=== PATIENT | male | born 1930 | race Caucasian/White ===

== ENCOUNTER 2016-06-25 13:38 | Outpatient (CLI) | payer MEDICARE, BC ==
[~2016-06-25 13:38] MED LIST: ASPI-605 PO; CLOP75TA2 PO; DIGO125T PO; FINA5TAB4 PO; TEST75GE TD
== END 2016-06-25 23:59 | disposition home or self-care (01) ==
LOC: WOU 13:38
PROVIDERS: ATTEND Podiatrist Foot & Ankle Surgery
DX: I87.311 Chronic venous hypertension (idiopathic) with ulcer of right lower extremity (principal); L97.212 Non-pressure chronic ulcer of right calf with fat layer exposed; R60.0 Localized edema; Z79.01 Long term (current) use of anticoagulants; Z87.891 Personal history of nicotine dependence; I49.9 Cardiac arrhythmia, unspecified; G62.9 Polyneuropathy, unspecified; B35.1 Tinea unguium
CPT/HCPCS: 11042; A6402

== ENCOUNTER 2016-07-02 10:37 | Outpatient (CLI) | payer MEDICARE, BC | END 2016-07-02 23:59 | disposition home or self-care (01) | LOC: WOU 10:37 | PROVIDERS: ATTEND Podiatrist Foot & Ankle Surgery | DX: I83.212 Varicose veins of right lower extremity with both ulcer of calf and inflammation (principal); L97.212 Non-pressure chronic ulcer of right calf with fat layer exposed | CPT/HCPCS: 93925-TC; 93970-TC; A6207 ==

== ENCOUNTER 2016-07-03 08:35 | Outpatient (CLI) | payer MEDICARE, BC | END 2016-07-03 23:59 | disposition home or self-care (01) | LOC: WOU 08:35 | PROVIDERS: ATTEND Podiatrist Foot & Ankle Surgery | DX: I87.311 Chronic venous hypertension (idiopathic) with ulcer of right lower extremity (principal); L97.812 Non-pressure chronic ulcer of other part of right lower leg with fat layer exposed; R60.0 Localized edema; I49.9 Cardiac arrhythmia, unspecified; Z79.01 Long term (current) use of anticoagulants; G62.9 Polyneuropathy, unspecified; Z88.1 Allergy status to other antibiotic agents; Z87.891 Personal history of nicotine dependence; Z82.49 Family history of ischemic heart disease and other diseases of the circulatory system; Z80.9 Family history of malignant neoplasm, unspecified | CPT/HCPCS: 11042; A6207; A6402 ==

== ENCOUNTER 2016-07-09 09:50 | Outpatient (CLI) | payer MEDICARE, BC | END 2016-07-09 23:59 | disposition home or self-care (01) | LOC: WOU 09:50 | PROVIDERS: ATTEND Podiatrist Foot & Ankle Surgery | DX: I87.311 Chronic venous hypertension (idiopathic) with ulcer of right lower extremity (principal); L97.212 Non-pressure chronic ulcer of right calf with fat layer exposed; R60.0 Localized edema; G62.9 Polyneuropathy, unspecified; I49.9 Cardiac arrhythmia, unspecified; Z79.01 Long term (current) use of anticoagulants; R26.9 Unspecified abnormalities of gait and mobility | CPT/HCPCS: 29582; A6207; A6402 ==

== ENCOUNTER 2016-07-16 09:50 | Outpatient (CLI) | payer MEDICARE, BC | END 2016-07-16 23:59 | disposition home or self-care (01) | LOC: WOU 09:50 | PROVIDERS: ATTEND Podiatrist Foot & Ankle Surgery | DX: I87.311 Chronic venous hypertension (idiopathic) with ulcer of right lower extremity (principal); L97.212 Non-pressure chronic ulcer of right calf with fat layer exposed; R60.0 Localized edema; B35.1 Tinea unguium; B35.3 Tinea pedis; Z87.891 Personal history of nicotine dependence; I49.9 Cardiac arrhythmia, unspecified; Z79.01 Long term (current) use of anticoagulants | CPT/HCPCS: 11042; A6402 ==

== ENCOUNTER 2016-07-23 09:56 | Outpatient (CLI) | payer MEDICARE, BC | END 2016-07-23 23:59 | disposition home or self-care (01) | LOC: WOU 09:56 | PROVIDERS: ATTEND Podiatrist Foot & Ankle Surgery | DX: I87.301 Chronic venous hypertension (idiopathic) without complications of right lower extremity (principal); Z87.891 Personal history of nicotine dependence; R26.81 Unsteadiness on feet; Z79.01 Long term (current) use of anticoagulants; I49.9 Cardiac arrhythmia, unspecified; G62.9 Polyneuropathy, unspecified | CPT/HCPCS: G0463 ==

== ENCOUNTER 2017-01-13 05:07 | Emergency (ER) | payer MEDICARE, BC ==
[~2017-01-13] VITALS: Ht 172.7 cm; Wt 77.1 kg
--- NOTE | 2017-01-13 05:07 | NUR ---
86/M BIB SELF A/O x3 C/O INCREASED SWELLING TO LEFT LEG; PT NOTED WITH BLE EDEMA. PT DENIES SOB OR CHEST PAIN. RR EVEN AND UNLABORED. PT PLACED ON CORROSION ENGINEER. VSS. AWAITING PROVIDER ORDERS.
[2017-01-13] MEDS ORDERED: CLINDAMYCIN HCL 150 MG CAPSULE PO ONE ×2 (05:46→06:00)
[2017-01-13 06:17] LABS: CARBON DIOXIDE 27 mmol/L (21-32); CHLORIDE 107 mmol/L (98-107); GLUCOSE 111 mg/dL (74-106); POTASSIUM 4.1 mmol/L (3.5-5.1); SODIUM SERUM 143 mmol/L (136-145); UREA NITROGEN, BLOOD 20 mg/dL (7-18)
[2017-01-13 06:21] LABS: INR 1.04 (0.87-1.13); PROTHROMBIN TIME 11.1 SECS (9.5-12.7)
[2017-01-13 06:29] LABS: BASOPHILS % (AUTO) 0.1 % (0.0-2.0); EOSINOPHILS % (AUTO) 0.7 % (0.0-6.0); HEMATOCRIT 41 % (39-51); HEMOGLOBIN 13.8 g/dL (13.5-17.5); LYMPHOCYTES # (AUTO) 0.5 /CMM (0.8-4.8); MEAN CORPUSCULAR HEMOGLOBIN 34 PG (26.0-33.0); MEAN CORPUSCULAR HGB CONC 34 g/dl (31.0-36.0); MEAN CORPUSCULAR VOLUME 102 fL (80-96); MONOCYTES # (AUTO) 1.3 /CMM (0.1-1.30); MONOCYTES % (AUTO) 18.6 % (2.0-12.0); NEUTROPHILS # (AUTO) 4.9 /CMM (1.8-8.9); NEUTROPHILS % (AUTO) 72.6 % (43.0-81.0); PLATELET COUNT (AUTO) 151 /CMM (150-450); RDW COEFFICIENT OF VARIATION 15.1 (11.5-15.0); RED BLOOD CELL COUNT(AUTO) 4.02 MIL/uL (4.5-6.0); WHITE BLOOD COUNT (AUTO) 6.8 K/uL (4.3-11.0)
[2017-01-13 06:51] VITALS: BP 107/66
--- NOTE | 2017-01-13 06:51 | NUR ---
Patient discharged to home in stable condition. Written and verbal after care instructions given. Patient verbalizes understanding of instruction. PT ambulatory with a steady gait VITAL SIGNS WITHIN NORMAL LIMITS.
[2017-01-13 08:08] LABS: LYMPHOCYTES % (MANUAL) 15 % (16-48); MONOCYTES % (MANUAL) 8 % (0-11.0); NEUTROPHILS % (MANUAL) 77 (42-76)
== END 2017-01-13 07:00 | disposition home or self-care (01) ==
LOC: ER 05:09
DX: L03.116 Cellulitis of left lower limb (principal); R60.0 Localized edema; I48.2 Chronic atrial fibrillation; Z79.82 Long term (current) use of aspirin; Z88.1 Allergy status to other antibiotic agents
CPT/HCPCS: 36415; 80048-TC; 85025-TC; 85730-TC; 93971-TC; A4606; Z7610

== ENCOUNTER 2017-03-04 13:15 | Outpatient (CLI) | payer MEDICARE, BC | END 2017-03-04 23:59 | disposition home or self-care (01) | LOC: WOU 13:15 | PROVIDERS: ATTEND Podiatrist Foot & Ankle Surgery | DX: S80.821A Blister (nonthermal), right lower leg, initial encounter (principal); L03.116 Cellulitis of left lower limb; X58.XXXA Exposure to other specified factors, initial encounter; Y92.89 Other specified places as the place of occurrence of the external cause; I87.323 Chronic venous hypertension (idiopathic) with inflammation of bilateral lower extremity; Z87.891 Personal history of nicotine dependence; N40.0 Benign prostatic hyperplasia without lower urinary tract symptoms; G62.9 Polyneuropathy, unspecified; L03.115 Cellulitis of right lower limb | CPT/HCPCS: 10140; 87070; 87075; 87077; 87186; A6207; A6402 ==

== ENCOUNTER 2017-03-11 12:48 | Outpatient (CLI) | payer MEDICARE, BC | END 2017-03-11 23:59 | disposition home or self-care (01) | LOC: WOU 12:48 | PROVIDERS: ATTEND Podiatrist Foot & Ankle Surgery | DX: R60.0 Localized edema (principal); S80.821A Blister (nonthermal), right lower leg, initial encounter; X58.XXXA Exposure to other specified factors, initial encounter; Y92.89 Other specified places as the place of occurrence of the external cause | CPT/HCPCS: A6402; G0463 ==

== ENCOUNTER 2017-04-16 08:26 | Outpatient (CLI) | payer MEDICARE, BC | END 2017-04-16 23:59 | disposition home or self-care (01) | LOC: WOU 08:26 | PROVIDERS: ATTEND Podiatrist Foot & Ankle Surgery | DX: I89.0 Lymphedema, not elsewhere classified (principal); L97.822 Non-pressure chronic ulcer of other part of left lower leg with fat layer exposed; L97.811 Non-pressure chronic ulcer of other part of right lower leg limited to breakdown of skin; I87.2 Venous insufficiency (chronic) (peripheral); R60.0 Localized edema; T14.8XXA Other injury of unspecified body region, initial encounter; X58.XXXA Exposure to other specified factors, initial encounter; Y92.89 Other specified places as the place of occurrence of the external cause | CPT/HCPCS: A6209; A6402; G0463 ==

== ENCOUNTER 2017-04-22 09:28 | Outpatient (CLI) | payer MEDICARE, BC | END 2017-04-22 23:59 | disposition home or self-care (01) | LOC: WOU 09:28 | PROVIDERS: ATTEND Podiatrist Foot & Ankle Surgery | DX: I87.2 Venous insufficiency (chronic) (peripheral) (principal); L97.822 Non-pressure chronic ulcer of other part of left lower leg with fat layer exposed; L97.812 Non-pressure chronic ulcer of other part of right lower leg with fat layer exposed; I89.0 Lymphedema, not elsewhere classified; M20.40 Other hammer toe(s) (acquired), unspecified foot; Z88.1 Allergy status to other antibiotic agents; L84 Corns and callosities | CPT/HCPCS: 11042; A6402 ==

== ENCOUNTER 2017-04-29 13:42 | Outpatient (CLI) | payer MEDICARE, BC ==
[~2017-04-29 13:42] MED LIST changes: +CLOP75TA15 PO; -CLOP75TA2 PO
== END 2017-04-29 23:59 | disposition home or self-care (01) ==
LOC: WOU 13:42
PROVIDERS: ATTEND Podiatrist Foot & Ankle Surgery
DX: R60.0 Localized edema (principal); I70.203 Unspecified atherosclerosis of native arteries of extremities, bilateral legs

== ENCOUNTER 2017-04-30 09:25 | Outpatient (CLI) | payer MEDICARE, BC ==
[~2017-04-30 09:25] MED LIST changes: -CLOP75TA15 PO; +CLOP75TA2 PO
[2017-04-30 11:21] LABS: EOSINOPHILS % (AUTO) 0.5 % (0.0-6.0); HEMATOCRIT 44 % (39-51); HEMOGLOBIN 14.6 g/dL (13.5-17.5); LYMPHOCYTES # (AUTO) 0.9 /CMM (0.8-4.8); LYMPHOCYTES % (AUTO) 15.5 % (20.0-44.0); MEAN CORPUSCULAR HEMOGLOBIN 33 PG (26.0-33.0); MEAN CORPUSCULAR HGB CONC 33 g/dl (31.0-36.0); MEAN CORPUSCULAR VOLUME 100 fL (80-96); MONOCYTES % (AUTO) 17.8 % (2.0-12.0); NEUTROPHILS # (AUTO) 3.8 /CMM (1.8-8.9); NEUTROPHILS % (AUTO) 66.2 % (43.0-81.0); PLATELET COUNT (AUTO) 181 /CMM (150-450); RDW COEFFICIENT OF VARIATION 14.7 (11.5-15.0); WHITE BLOOD COUNT (AUTO) 5.8 K/uL (4.3-11.0)
[2017-04-30 11:41] LABS: ALANINE AMINOTRANSFERASE 64 U/L (12-78); ALBUMIN 3.7 g/dL (3.4-5.0); ALKALINE PHOSPHATASE 64 U/L (46-116); ASPARTATE AMINOTRANSFERASE 37 U/L (15-37); BILIRUBIN,TOTAL 0.7 mg/dL (0.2-1.0); CARBON DIOXIDE 32 mmol/L (21-32); CHLORIDE 104 mmol/L (98-107); CREATININE 0.8 mg/dL (0.6-1.3); GLUCOSE 106 mg/dL (74-106); POTASSIUM 4.3 mmol/L (3.5-5.1); SODIUM SERUM 143 mmol/L (136-145); TOTAL PROTEIN, SERUM 7.3 g/dL (6.4-8.2); UREA NITROGEN, BLOOD 24 mg/dL (7-18)
[2017-04-30 14:24] LABS: BAND % (MANUAL) 2 % (0.0-5.0); EOSINOPHILS % (MANUAL) 2 % (0-4); LYMPHOCYTES % (MANUAL) 14 % (16-48); MONOCYTES % (MANUAL) 17 % (0-11.0); NEUTROPHILS % (MANUAL) 65 (42-76)
[2017-05-02 08:09] LABS: HOMOCYSTEINE, PLASMA 15.1 umol/L (0.0-15.0)
== END 2017-04-30 23:59 | disposition home or self-care (01) ==
LOC: WOU 09:25
PROVIDERS: ATTEND Podiatrist Foot & Ankle Surgery
DX: I87.311 Chronic venous hypertension (idiopathic) with ulcer of right lower extremity (principal); I89.0 Lymphedema, not elsewhere classified; L97.812 Non-pressure chronic ulcer of other part of right lower leg with fat layer exposed
CPT/HCPCS: 11042; 36415; 80053-TC; 82306; 83090; 85025-TC; 85652-TC; A6402

== ENCOUNTER 2017-05-06 09:50 | Outpatient (CLI) | payer MEDICARE, BC ==
[~2017-05-06 09:50] MED LIST changes: +CLOP75TA15 PO; -CLOP75TA2 PO
== END 2017-05-06 23:59 | disposition home or self-care (01) ==
LOC: WOU 09:50
PROVIDERS: ATTEND Podiatrist Foot & Ankle Surgery
DX: I87.311 Chronic venous hypertension (idiopathic) with ulcer of right lower extremity (principal); L97.812 Non-pressure chronic ulcer of other part of right lower leg with fat layer exposed; I89.0 Lymphedema, not elsewhere classified
CPT/HCPCS: 11042; A6402

== ENCOUNTER 2017-05-14 09:28 | Outpatient (CLI) | payer MEDICARE, BC | END 2017-05-14 23:59 | disposition home or self-care (01) | LOC: WOU 09:28 | PROVIDERS: ATTEND Podiatrist Foot & Ankle Surgery | DX: I87.2 Venous insufficiency (chronic) (peripheral) (principal); L97.512 Non-pressure chronic ulcer of other part of right foot with fat layer exposed; I89.0 Lymphedema, not elsewhere classified; I48.2 Chronic atrial fibrillation; Z79.01 Long term (current) use of anticoagulants | CPT/HCPCS: 11042; A6402 ==

== ENCOUNTER 2017-05-20 09:49 | Outpatient (CLI) | payer MEDICARE, BC | END 2017-05-20 23:59 | disposition home or self-care (01) | LOC: WOU 09:49 | PROVIDERS: ATTEND Podiatrist Foot & Ankle Surgery | DX: I89.0 Lymphedema, not elsewhere classified (principal); R60.0 Localized edema; B35.1 Tinea unguium | CPT/HCPCS: A6402; G0463 ==

== ENCOUNTER 2017-06-03 09:48 | Outpatient (CLI) | payer MEDICARE, BC | END 2017-06-03 23:59 | disposition home or self-care (01) | LOC: WOU 09:48 | PROVIDERS: ATTEND Podiatrist Foot & Ankle Surgery | DX: I87.2 Venous insufficiency (chronic) (peripheral) (principal); I87.8 Other specified disorders of veins; R60.0 Localized edema; I89.0 Lymphedema, not elsewhere classified; Z88.1 Allergy status to other antibiotic agents | CPT/HCPCS: 17250; A6402 ==

== ENCOUNTER 2017-06-10 10:00 | Outpatient (CLI) | payer MEDICARE, BC | END 2017-06-10 23:59 | disposition home or self-care (01) | LOC: WOU 10:00 | PROVIDERS: ATTEND Podiatrist Foot & Ankle Surgery | DX: I87.333 Chronic venous hypertension (idiopathic) with ulcer and inflammation of bilateral lower extremity (principal); L97.822 Non-pressure chronic ulcer of other part of left lower leg with fat layer exposed; L97.819 Non-pressure chronic ulcer of other part of right lower leg with unspecified severity; L03.116 Cellulitis of left lower limb; L03.115 Cellulitis of right lower limb; I89.0 Lymphedema, not elsewhere classified; I48.2 Chronic atrial fibrillation; Z79.01 Long term (current) use of anticoagulants | CPT/HCPCS: 87070-TC; 87186-TC; A6402; G0463 ==

== ENCOUNTER 2017-06-17 09:50 | Outpatient (CLI) | payer MEDICARE, BC | END 2017-06-17 23:59 | disposition home or self-care (01) | LOC: WOU 09:50 | PROVIDERS: ATTEND Podiatrist Foot & Ankle Surgery | DX: I87.2 Venous insufficiency (chronic) (peripheral) (principal); L97.822 Non-pressure chronic ulcer of other part of left lower leg with fat layer exposed; L97.812 Non-pressure chronic ulcer of other part of right lower leg with fat layer exposed; I89.0 Lymphedema, not elsewhere classified; L08.9 Local infection of the skin and subcutaneous tissue, unspecified; B95.7 Other staphylococcus as the cause of diseases classified elsewhere; B96.89 Other specified bacterial agents as the cause of diseases classified elsewhere | CPT/HCPCS: A6402; G0463 ==

== ENCOUNTER 2017-08-01 09:24 | Outpatient (CLI) | payer MEDICARE, BC | END 2017-08-01 23:59 | disposition home or self-care (01) | LOC: WOU 09:24 | PROVIDERS: ATTEND Podiatrist Foot & Ankle Surgery | DX: I87.2 Venous insufficiency (chronic) (peripheral) (principal); L97.822 Non-pressure chronic ulcer of other part of left lower leg with fat layer exposed; I89.0 Lymphedema, not elsewhere classified; R60.0 Localized edema; Z87.891 Personal history of nicotine dependence; I49.9 Cardiac arrhythmia, unspecified; Z79.01 Long term (current) use of anticoagulants | CPT/HCPCS: 11042; A6402 ==

== ENCOUNTER 2017-08-04 11:43 | Outpatient (CLI) | payer MEDICARE, BC | END 2017-08-04 23:59 | disposition home or self-care (01) | LOC: LAB 11:43 | PROVIDERS: ATTEND Podiatrist Foot & Ankle Surgery | DX: L97.222 Non-pressure chronic ulcer of left calf with fat layer exposed (principal) | CPT/HCPCS: 36415; 80048-TC; 82040-TC; 84134-TC ==

== ENCOUNTER 2017-08-05 09:45 | Outpatient (CLI) | payer MEDICARE, BC ==
[2017-08-04 12:45] LABS: EOSINOPHILS # (AUTO) 0.1 /CMM (0.0-0.7); EOSINOPHILS % (AUTO) 1.7 % (0.0-6.0); HEMATOCRIT 41 % (39-51); HEMOGLOBIN 13.8 g/dL (13.5-17.5); LYMPHOCYTES # (AUTO) 0.7 /CMM (0.8-4.8); MEAN CORPUSCULAR HEMOGLOBIN 34 PG (26.0-33.0); MEAN CORPUSCULAR HGB CONC 34 g/dl (31.0-36.0); MEAN CORPUSCULAR VOLUME 100 fL (80-96); MONOCYTES # (AUTO) 0.9 /CMM (0.1-1.30); MONOCYTES % (AUTO) 14.3 % (2.0-12.0); NEUTROPHILS # (AUTO) 4.7 /CMM (1.8-8.9); PLATELET COUNT (AUTO) 168 /CMM (150-450); RDW COEFFICIENT OF VARIATION 14.8 (11.5-15.0); RED BLOOD CELL COUNT(AUTO) 4.06 MIL/uL (4.5-6.0); WHITE BLOOD COUNT (AUTO) 6.4 K/uL (4.3-11.0)
[2017-08-04 13:22] LABS: ALBUMIN 3.3 g/dL (3.4-5.0); CALCIUM, SERUM 9.7 mg/dL (8.5-10.1); CARBON DIOXIDE 28 mmol/L (21-32); CHLORIDE 102 mmol/L (98-107); CREATININE 0.9 mg/dL (0.6-1.3); GLUCOSE 112 mg/dL (74-106); POTASSIUM 4.1 mmol/L (3.5-5.1); SODIUM SERUM 140 mmol/L (136-145); UREA NITROGEN, BLOOD 19 mg/dL (7-18)
[2017-08-04 13:26] LABS: PREALBUMIN 28.7 MG/DL (18.0-35.7)
== END 2017-08-05 23:59 | disposition home or self-care (01) ==
LOC: WOU 09:45
PROVIDERS: ATTEND Podiatrist Foot & Ankle Surgery
DX: I87.312 Chronic venous hypertension (idiopathic) with ulcer of left lower extremity (principal); L97.328 Non-pressure chronic ulcer of left ankle with other specified severity; L97.822 Non-pressure chronic ulcer of other part of left lower leg with fat layer exposed; I48.2 Chronic atrial fibrillation; Z79.01 Long term (current) use of anticoagulants; I89.0 Lymphedema, not elsewhere classified; E88.09 Other disorders of plasma-protein metabolism, not elsewhere classified; S80.11XD Contusion of right lower leg, subsequent encounter; X58.XXXD Exposure to other specified factors, subsequent encounter
CPT/HCPCS: 17250; 36415; 80048-TC; 82040-TC; 84134-TC; 85025-TC; A6402

== ENCOUNTER 2017-08-12 10:08 | Outpatient (CLI) | payer MEDICARE, BC | END 2017-08-12 23:59 | disposition home or self-care (01) | LOC: WOU 10:08 | PROVIDERS: ATTEND Podiatrist Foot & Ankle Surgery | DX: I87.2 Venous insufficiency (chronic) (peripheral) (principal); L97.822 Non-pressure chronic ulcer of other part of left lower leg with fat layer exposed; I89.0 Lymphedema, not elsewhere classified; I48.91 Unspecified atrial fibrillation; Z79.01 Long term (current) use of anticoagulants; R60.0 Localized edema; S80.11XD Contusion of right lower leg, subsequent encounter; X58.XXXD Exposure to other specified factors, subsequent encounter | CPT/HCPCS: 11042; A6402 ==

== ENCOUNTER 2017-08-19 09:53 | Outpatient (CLI) | payer MEDICARE, BC | END 2017-08-19 23:59 | disposition home or self-care (01) | LOC: WOU 09:53 | PROVIDERS: ATTEND Podiatrist Foot & Ankle Surgery | DX: I87.2 Venous insufficiency (chronic) (peripheral) (principal); L97.822 Non-pressure chronic ulcer of other part of left lower leg with fat layer exposed; R60.9 Edema, unspecified; I89.0 Lymphedema, not elsewhere classified | CPT/HCPCS: 11042; A6402 ==

== ENCOUNTER 2017-08-26 09:33 | Outpatient (CLI) | payer MEDICARE, BC | END 2017-08-26 23:59 | disposition home or self-care (01) | LOC: WOU 09:33 | PROVIDERS: ATTEND Podiatrist Foot & Ankle Surgery | DX: I87.312 Chronic venous hypertension (idiopathic) with ulcer of left lower extremity (principal); L97.822 Non-pressure chronic ulcer of other part of left lower leg with fat layer exposed; I48.91 Unspecified atrial fibrillation; Z79.01 Long term (current) use of anticoagulants; S80.11XA Contusion of right lower leg, initial encounter; X58.XXXA Exposure to other specified factors, initial encounter; Y92.89 Other specified places as the place of occurrence of the external cause | CPT/HCPCS: 11042; A6402 ==

== ENCOUNTER 2017-09-23 16:17 | Emergency (ER) | payer MEDICARE, BC ==
[~2017-09-23] VITALS: Ht 185.4 cm; Wt 72.6 kg
--- NOTE | 2017-09-23 16:20 | NUR ---
PATIENT TO ED DT URINARY RETENTION X 6-7 HRS. PATIENT IS COMPLAINING OF PRESSURE LIKE BLADDER PAIN. PATIENT IS NOT IN DISTRESS. AFEBRILE. VSS
[2017-09-23 18:12] LABS: APPEARANCE,URINE CLEAR (CLEAR); BILIRUBIN,URINE NEGATIVE (NEGATIVE); BLOOD, URINE NEGATIVE Ery/uL (NEGATIVE); COLOR,URINE YELLOW (YELLOW); KETONES,URINE TRACE (NEGATIVE); LEUKOCYTE ESTERASE ,URINE NEGATIVE (NEGATIVE); NITRITE, URINE NEGATIVE (NEGATIVE); PROTEIN,URINE NEGATIVE (NEGATIVE); UGLUCOSE NEGATIVE (NEGATIVE); UROBILINOGEN,URINE 0.2 EU/dL (0.2)
[2017-09-23 18:26] LABS: BACTERIA,URINE None seen /HPF (None Seen); SQUAMOUS EPITHELIAL CELL,UR Few /HPF (None Seen); WBC,URINE 0-2 /HPF (0-3)
[2017-09-23 19:46] VITALS: BP 148/90
== END 2017-09-23 19:50 | disposition home or self-care (01) ==
LOC: ER 16:19
DX: R33.8 Other retention of urine (principal); N40.1 Benign prostatic hyperplasia with lower urinary tract symptoms; I48.91 Unspecified atrial fibrillation; Z88.1 Allergy status to other antibiotic agents; Z79.82 Long term (current) use of aspirin
CPT/HCPCS: 81000-TC; A4606; Z7610

== ENCOUNTER 2018-02-15 06:22 | Emergency (ER) | payer MEDICARE, BC ==
[~2018-02-15] VITALS: Ht 185.4 cm; Wt 74.8 kg
[2018-02-15] MEDS ORDERED: LIDOCAINE 2% JEL UROJET 10 ML MM ONE ×2 (06:29→06:30)
--- NOTE | 2018-02-15 06:40 | NUR ---
BBSELF FROM HOME C/C ABD PAIN AND URINARY RETENTION X 3 HRS, PER PT, HE STATES "I HAVE BPH AND I'AM RETAINING URINE". -N/V/D. -CP. PT STATES HE WAS SENT HOME WITH AN INDWELLING URINARY CATH LAST TIME SEEN FOR THE SAME PROBLEM, BUT HE STATES HE ROMVED HIS CATHETHER. PT IS AAOX4. LBM 1 DAY AGO. SKIN WARM AND DRY, WNL. NO S/S OF ACUTE DISTRESS NOTED. RR EVEN AND UNLABORED. PT PLACED ON UTILIZATION COORDINATOR AND POX. PT STATES HX OF "FAST HEART RATE" WITH RATE OF 100-115 BEING HIS NORM. BEDSIDE FOR EVAL. PT SAFETY AND COMFORT MEASURES IN PLACE.
--- NOTE | 2018-02-15 06:49 | NUR ---
URINE SAMPLE COLLECTED AND CALLED LAB FOR BREAD SLICER MACHINE. TOTAL OUTPUT OF URINE 700ML POST RODRIGUEZ CATH INSERTION. AWARE
[2018-02-15 06:58] LABS: EOSINOPHILS % (AUTO) 1.8 % (0.0-6.0); HEMATOCRIT 42 % (39-51); HEMOGLOBIN 13.9 g/dL (13.5-17.5); LYMPHOCYTES # (AUTO) 0.8 /CMM (0.8-4.8); LYMPHOCYTES % (AUTO) 13.4 % (20.0-44.0); MEAN CORPUSCULAR HGB CONC 33 g/dl (31.0-36.0); MEAN CORPUSCULAR VOLUME 103 fL (80-96); MONOCYTES % (AUTO) 16.5 % (2.0-12.0); NEUTROPHILS # (AUTO) 4.3 /CMM (1.8-8.9); NEUTROPHILS % (AUTO) 68.3 % (43.0-81.0); PLATELET COUNT (AUTO) 188 /CMM (150-450); RDW COEFFICIENT OF VARIATION 14.2 (11.5-15.0); RED BLOOD CELL COUNT(AUTO) 4.09 MIL/uL (4.5-6.0); WHITE BLOOD COUNT (AUTO) 6.3 K/uL (4.3-11.0)
[2018-02-15 07:00] LABS: APPEARANCE,URINE SL CLOUDY (CLEAR); BILIRUBIN,URINE NEGATIVE (NEGATIVE); BLOOD, URINE NEGATIVE Ery/uL (NEGATIVE); COLOR,URINE DARK YELLO (YELLOW); KETONES,URINE NEGATIVE (NEGATIVE); LEUKOCYTE ESTERASE ,URINE NEGATIVE (NEGATIVE); NITRITE, URINE NEGATIVE (NEGATIVE); PH,URINE 5.5 (5.0-8.0); PROTEIN,URINE NEGATIVE (NEGATIVE); UGLUCOSE NEGATIVE (NEGATIVE); UROBILINOGEN,URINE 0.2 EU/dL (0.2)
--- NOTE | 2018-02-15 07:02 | NUR ---
REPORT GIVEN TO STERLING SINGLETON FOR MAXIMO.
[2018-02-15 07:04] LABS: CALCIUM, SERUM 9.4 mg/dL (8.5-10.1); CARBON DIOXIDE 29 mmol/L (21-32); CHLORIDE 106 mmol/L (98-107); CREATININE 0.9 mg/dL (0.6-1.3); GLUCOSE 112 mg/dL (74-106); POTASSIUM 3.9 mmol/L (3.5-5.1); SODIUM SERUM 142 mmol/L (136-145); UREA NITROGEN, BLOOD 21 mg/dL (7-18)
--- NOTE | 2018-02-15 07:32 | NUR ---
PT PROVIDED W/ LEG BAG. D/C HOME IN STABLE CONDITION.
[2018-02-15 07:35] VITALS: BP 135/84
== END 2018-02-15 07:36 | disposition home or self-care (01) ==
LOC: ER 06:29
DX: R33.9 Retention of urine, unspecified (principal); I48.91 Unspecified atrial fibrillation; Z88.1 Allergy status to other antibiotic agents; Z79.82 Long term (current) use of aspirin
CPT/HCPCS: 36415; 51702; 80048; 81001; 85025; 99284; A4606; J3490; 81000-TC; Z7610

== ENCOUNTER 2018-02-15 14:36 | Emergency (ER) | payer MEDICARE, BC ==
[~2018-02-15] VITALS: Ht 185.4 cm; Wt 74.8 kg
[2018-02-15 14:36] VITALS: BP 122/74
--- NOTE | 2018-02-15 15:20 | NUR ---
16 FR lindsay catheter inserted per sterile protocal. Immediate output 175 ML of urine, yellow and clear
[2018-04-02] MEDS ORDERED: CLIN300C11 PO (08:23)
== END 2018-02-15 15:34 | disposition home or self-care (01) ==
LOC: ER 14:37
DX: R33.8 Other retention of urine (principal); N40.1 Benign prostatic hyperplasia with lower urinary tract symptoms; I48.91 Unspecified atrial fibrillation; Z88.1 Allergy status to other antibiotic agents; Z79.82 Long term (current) use of aspirin
CPT/HCPCS: 51702; 99284; A4606; Z7610